=== PATIENT | male | born 1995 | race African-American/Black ===

== ENCOUNTER 2017-10-24 10:04 | Emergency (ER) | payer MEDICAID ==
[2017-10-24] MEDS ORDERED: PROPARACAINE 0.5% 15 ML OPHT DROP ONE (10:15)
[2017-10-24] MEDS ORDERED: PROPARACAINE 0.5% 15 ML OPHT DROP LEFTEYE ONE (10:19)
[2017-10-24 10:23] VITALS: BP 127/62; PULSE 78; RESP 18; TEMP 98; O2SAT 96
--- NOTE | 2017-10-24 10:31 | EDPHY ---
H & P Stated Complaint: c/o pipe glue drip into eye yesterday Time Seen by Provider: 10/24/17 10:10 HPI/ROS: Chief Complaint: Eye pain HPI: 21-year-old male had PVC cement drip into his left eye yesterday. He irrigated it copiously with warm water at that time. This morning woke up with irritation in his eye with purulent discharge and his eyelid glued shut. Having minimal irritation. No vision changes. Does not wear glasses or contacts. No prior injuries. ROS: 10 point Review of Systems is negative except as noted in the HPI. PMH: Exercise-induced asthma Social History: No smoking, no alcohol, no recreational drug use Family History: non-contributory Physical Exam: General: Awake, alert, no acute distress Eye Exam Visual Acuity: Intact EOM: Intact OU Visual Lemos: Intact OU Pupil: Equal, round and reactive to light and accomodation OU External: Lids, lashes and margins normal OU Slit Lamp: no injection, limbal sparing, Iris normal, Cornea normal, Anterior chambers clear without cells or flare, no hyphema, normal angles Fluorosceine exam: No uptake PH: 8 - Personal History Current Tetanus Diphtheria and Acellular Pertussis (TDAP): Yes Tetanus Vaccine Date: within 10 yrs - Medical/Surgical History Hx Asthma: Yes Hx Chronic Respiratory Disease: No Hx Diabetes: No Hx Cardiac Disease: No Hx Renal Disease: No Hx Cirrhosis: No Hx Alcoholism: No Hx HIV/AIDS: No Hx Splenectomy or Spleen Trauma: No Other PMH: sports-induced asthma, hernia surgery - Social History Smoking Status: Former smoker Constitutional: Initial Vital Signs Temperature (C) 36.6 C 10/24/17 10:16 Heart Rate 78 10/24/17 10:16 Respiratory Rate 18 10/24/17 10:16 Blood Pressure 127/62 H 10/24/17 10:16 O2 Sat (%) 96 10/24/17 10:16 O2 Delivery Mode Room Air Allergies/Adverse Reactions: No Known Allergies Allergy (Verified 01/05/16 07:30) Home Medications: Medication Instructions Recorded Albuterol Hfa Anes Only [Proair 2 puffs IH Q4 PRN #1 mdi 01/04/16 Hfa Icu (*)] Erythromycin 0.5% 1 gm OP Q4 5 Days #1 opht.oint 10/24/17 Loteprednol 0.5% [Lotemax0.5% Gel] 1 drops LEFTEYE BID 5 Days #1 10/24/17 opht.btl Medical Decision Making ED Course/Re-evaluation: This patient had PVC Amelia in his eye yesterday. He irrigated at that time continued to have some irritation and discharge. No significant pain visual loss. PH hears a 0.0. Will flushed with 1 L normal saline reassess. After saline flush patient's pH remains 8. Will flushed with 2nd L saline. I have discussed with Dr. Luna, ophthalmology. He would like the patient started on Lotemax retirement, chilled artificial tears. He will see the patient follow up on Sunday. No other treatment at this time. - Data Points Medications Given: Discontinued Medications Proparacaine HCl (Alcaine 0.5%) 1 drops LEFTEYE ONCE ONE Stop: 10/24/17 10:20 Last Admin: 10/24/17 10:21 Dose: 1 drop Departure - Departure Disposition: Home, Routine, Self-Care Clinical Impression: Acute conjunctivitis of left eye, Chemical exposure of eye Condition: Good Instructions: Conjunctivitis (ED) Additional Instructions: Apply erythromycin ointment every 4 hr while awake. Use the Lotemax retirement twice a day. You may use artificial tears [id number]. Keep these in her refrigerator. You may use these throughout the day for relief of your symptoms. Follow up with the trade mark examiner in 2 days. Return to the emergency depart for increasing pain, vision changes, or any other concerns. Referrals: NONE *PRIMARY CARE P,. [Primary Care Provider] - As per Instructions Leo Luna MD [Medical Doctor] - As per Instructions Prescriptions: Erythromycin 0.5% 1 gm OP Q4 5 Days #1 opht.oint Loteprednol 0.5% [Lotemax0.5% Gel] 1 drops LEFTEYE BID 5 Days #1 opht.btl
== END 2017-10-24 12:48 | disposition home or self-care (01) ==
LOC: CED 10:04
DX: H10.32 Unspecified acute conjunctivitis, left eye (principal); J45.909 Unspecified asthma, uncomplicated; Z77.098 Contact with and (suspected) exposure to other hazardous, chiefly nonmedicinal, chemicals; Z87.891 Personal history of nicotine dependence